=== PATIENT | female | born 1955 | race Caucasian/White ===

== ENCOUNTER 2018-07-14 15:09 | Day surgery (SDC) | payer OTHER ==
[2018-06-28 12:18] VITALS: BMI 25.2
[~2018-07-14 15:09] MED LIST: CEFAZOLIN 2 GM/D5W 2 GM/50 ML ML IVPB ONE; TRANEXAMIC ACID 1000 MG/10 ML VIAL IVPUSH ONE; VANCOMYCIN 1,000 MG in DEXTROSE 5%-WATER - 250 ML IVPB ONE
[2018-07-14] MEDS ORDERED: DEXAMETHASONE SOD PHOSPHATE/PF 10 MG/ML SDV ONE (15:11)
[2018-07-14] MEDS ORDERED: BUPIVACAINE HCL/PF (5 MG/ML) 30 ML VIAL IJ ONE (15:12)
[2018-07-14] MEDS ORDERED: MIDAZOLAM HCL 2 MG/2 ML SINGLE DOSE VIAL ONE (15:12)
[2018-07-14] MEDS ORDERED: PROPOFOL 20 ML ONE (16:21)
--- NOTE | 2018-07-14 17:11 | OP ---
Operative Note - Note: Operative Date: 07/14/18 Pre-Operative Diagnosis: Displaced, closed left distal radius and ulnar styloid fractures Operation: 1. Closed reduction left distal radius and ulnar styloid fractures. 2. Application left short arm cast Post-Operative Diagnosis: Same as Pre-op Surgeon: Koadk Burks Baseball Glove Shaper: Austin Burks Anesthesiologist/BINDER OPERATOR: Orlando Alfred Anesthesia: General (LMA) Estimated Blood Loss (mls): 0 Fluid Volume Replaced (mls): 250 (Crystalloid) Operative Report Dictated: Yes
[2018-07-14] MEDS ORDERED: [UNRECOGNIZED DRUG - OTHER] PO PRN (17:12)
[2018-07-14] MEDS ORDERED: ACETAMINOPHEN PO PRN (17:12)
[2018-07-14] MEDS ORDERED: DIPHENHYDRAMINE PO PRN (17:12)
--- NOTE | 2018-07-14 17:15 | PN ---
Progress Note (short form) - Note Progress Note: 62F s/p closed reduction left distal radius fracture & application left short arm cast #0. -Pain control: strictly no NSAID's. -DVT PPx: - Chemical: None. - Mechanical: OLYA's, SCD's. -Incentive spirometry. -PT/OT/Rehab, OOB. -NWB HOWIE. -f/u post-op trial of void - 8 hours max. -Cast care discussed with and understood by patient and family. -f/u [facility] [place] office tomorrow; call for appointment; . Kodak Burks MD (Orthopaedic Surgery).
[2018-07-14 18:16] VITALS: TEMP 97.9
[2018-07-14 19:05] VITALS: BP 127/65; PULSE 76
--- NOTE | 2018-07-14 23:22 | OP ---
DATE OF OPERATION: 07/14/2018 SURGEON: Kodak Burks M.D. ENTRY LEVEL MANAGEMENT: Austin Burks M.D. PREOPERATIVE DIAGNOSIS: Displaced Colles fracture left. POSTOPERATIVE DIAGNOSIS: Displaced Colles fracture left. OPERATION PERFORMED: 1. Manipulation under anesthesia. 2. Application of below-elbow cast. ANESTHESIA: Scalene block with general anesthesia. OPERATION IN DETAILS: The patient was correctly identified, brought in operating room. Left upper extremity was attended to as follows. Under fluoroscopy scanning, the fracture of the distal radius was inspected and was found to be a Colles fracture with an ulnar styloid fracture as well. The AP film was perfectly aligned. The lateral film revealed dorsal tilt of approximately 20 degrees. A manipulation under general anesthesia was performed. A cast applied, molding of the cast in accordance with the 6 points of pressure that is taking into the 3-point pressure in each plane, namely coronal and sagittal plane. A below-elbow cast is applied after a well padded cast applied. Fluoroscopy scan revealed the presence of a very acceptable reduction and the cast held the reduction well. No operative intervention. Plan for elevation and removal of cast in 6 weeks. MD ALLISON Padilla/[id number]
[2018-07-15] MEDS ORDERED: CHOLECALCIFEROL (VITAMIN D3) 1,000 UNIT TABLET (FP) PO SCH (10:00)
[2018-07-15] MEDS ORDERED: FLUoxetine HCL 20 MG CAPSULE (FP) PO SCH (10:00)
== END 2018-07-14 19:05 | disposition home or self-care (01) ==
LOC: FASU 15:09
PROVIDERS: ATTEND Orthopaedic Surgery Orthopaedic Surgery of the Spine
PROC: 0PSJXZZ Reposition Left Radius, External Approach (ICD-10-PCS; principal; 2018-07-14 16:43)
DX: S52.532A Colles' fracture of left radius, initial encounter for closed fracture (principal); X58.XXXA Exposure to other specified factors, initial encounter; Y93.9 Activity, unspecified; Y92.9 Unspecified place or not applicable
CPT/HCPCS: 73110-TC-LT-FY; 94760

== ENCOUNTER 2018-12-08 11:30 | Inpatient (IN) | payer OTHER ==
[2018-12-27 12:51] VITALS: BMI 22.8
[2019-01-12] MEDS ORDERED: MIDAZOLAM HCL 2 MG/2 ML SINGLE DOSE VIAL ONE ×3 (10:26→13:24)
[2019-01-12] MEDS ORDERED: TRANEXAMIC ACID 1000 MG/10 ML VIAL IVPUSH ONE (10:28)
[2019-01-12] MEDS ORDERED: VANCOMYCIN 1,000 MG in DEXTROSE 5%-WATER - 250 ML IVPB ONE (10:28)
[2019-01-12] MEDS ORDERED: CEFAZOLIN 1 GM/D5W 1 GRAM/50 ML BAG IVPB ONE (10:28)
[2019-01-12] MEDS ORDERED: BUPIVACAINE HCL/PF 0.5% (5MG/ML) 10 ML VIAL ONE ×2 (12:49→13:14)
[2019-01-12] MEDS ORDERED: TRANEXAMIC ACID 1000 MG/10 ML VIAL ONE (12:50)
[2019-01-12] MEDS ORDERED: ceFAZolin SODIUM 1 GM VIAL ONE (12:50)
[2019-01-12] MEDS ORDERED: VANCOMYCIN 1,000 MG VIAL (RESTRICTED TO ID ONLY) ONE (12:50)
[2019-01-12] MEDS ORDERED: ePHEDrine SULFATE 50 MG/1 ML AMPULE ONE (14:57)
[2019-01-12] MEDS ORDERED: MAG HYDROX/AL HYDROX/SIMETH 30 ML UNIT-DOSE CUP PO PRN (15:28)
[2019-01-12] MEDS ORDERED: MAGNESIUM HYDROX 2400MG/30ML ORAL SUSPENSION 30 ML CUP PO PRN (15:28)
[2019-01-12] MEDS ORDERED: LACTATED RINGERS SOLUTION 1,000 ML IV SCH ×2 (15:30→16:15)
[2019-01-12] MEDS ORDERED: traMADol HCL 50 MG TABLET PO PRN (16:01)
[2019-01-12] MEDS ORDERED: ONDANSETRON 4 MG/2 ML VIAL IVPUSH PRN (16:01)
[2019-01-12] MEDS ORDERED: ACETAMINOPHEN 1000 MG/100 ML VIAL (NON FORMULARY) IVPB ONE (16:01)
[2019-01-12] MEDS ORDERED: ACETAMINOPHEN INJECTION 100 ML IVPB ONE (16:17)
[2019-01-12] MEDS: oxyCODONE HCL 5 MG TABLET PO PRN ×2 (17:42→21:01)
[2019-01-12] MEDS: ONDANSETRON 4 MG/2 ML VIAL IVPUSH PRN (19:17)
[2019-01-12] MEDS: oxyCODONE HCL 10 MG SUSTAINED ACTING TABLET PO SCH (21:02)
[2019-01-12] MEDS: SENNOSIDES/DOCUSATE COMBO (SENNA PLUS) TABLET (UD) PO SCH (21:03)
[2019-01-12] MEDS: FERROUS SO4 325 MG TABLET (FP) PO SCH (21:03)
[2019-01-12] MEDS: ASPIRIN COATED 81 MG TABLET.EC PO SCH (21:03)
[2019-01-12] MEDS: ASCORBIC ACID 500 MG TABLET (FP) PO SCH (21:03)
[2019-01-12] MEDS: ACETAMINOPHEN 325 MG TABLET (FP) PO SCH (22:13)
[2019-01-12] MEDS: CEFAZOLIN 1 GM/D5W 1 GM/50 ML BAG IVPB SCH (23:07)
[2019-01-13] MEDS: oxyCODONE HCL 5 MG TABLET PO PRN ×6 (00:01→23:13)
[2019-01-13] MEDS ORDERED: VANCOMYCIN 1 GRAM (PRE-DOCKED) 1,000 MG/250 ML BAG IVPB ONE (01:00)
[2019-01-13] MEDS: ACETAMINOPHEN 325 MG TABLET (FP) PO SCH ×4 (03:16→21:49)
--- NOTE | 2019-01-13 04:17 | HP ---
CHIEF COMPLAINT: Right hip pain HISTORY OF PRESENT ILLNESS: 63 year-old female with a PMH significant for HLD, DJD, and anxiety, s/p right total hip arthroplasty on 01/12/[address] Burks. PAST MEDICAL HISTORY: Hyperlipidemia Degenerative joint disease Anxiety PAST SURGICAL HISTORY: Left wrist fracture closed reduction 06/2018 Social History: , 2 children Smoking: never Alcohol: no Drugs: no Family history: Mother a&w; father CVA, HTN, CABG Allergies No Known Allergies Allergy (Verified 12/27/18 12:41) HOME MEDICATIONS: Home Medications Medication Instructions Recorded Cholecalciferol (Vitamin D3) 4,000 unit PO DAILY 06/28/18 [Vitamin D3] Fluoxetine HCl [Prozac] 20 mg PO DAILY 06/28/18 Oxycodone HCl [Oxycodone HCl ER] 20 mg PO Q8H PRN 06/28/18 Acetaminophen 500 mg PO ASDIR PRN 07/14/18 REVIEW OF SYSTEMS CONSTITUTIONAL: Absent: fever, chills, diaphoresis, generalized weakness, malaise, loss of appetite, weight change HEENT: Absent: rhinorrhea, nasal congestion, throat pain, throat swelling, difficulty swallowing, mouth swelling, ear pain, eye pain, visual changes CARDIOVASCULAR: Absent: chest pain, syncope, palpitations, irregular heart rate, lightheadedness , peripheral edema RESPIRATORY: Absent: cough, shortness of breath, dyspnea with exertion, orthopnea, wheezing, stridor, hemoptysis GASTROINTESTINAL: Absent: abdominal pain, abdominal distension, nausea, vomiting, diarrhea, constipation, melena, hematochezia GENITOURINARY: Absent: dysuria, frequency, urgency, hesitancy, hematuria, flank pain, genital pain MUSCULOSKELETAL: +post-operative right hip pain Absent: myalgia, arthralgia, joint swelling, back pain, neck pain SKIN: Absent: rash, itching, pallor HEMATOLOGIC/IMMUNOLOGIC: Absent: easy bleeding, easy bruising, lymphadenopathy, frequent infections ENDOCRINE: Absent: unexplained weight gain, unexplained weight loss, heat intolerance, cold intolerance NEUROLOGIC: Absent: headache, focal weakness or paresthesias, dizziness, unsteady gait, seizure, mental status changes, bladder or bowel incontinence PSYCHIATRIC: Absent: anxiety, depression, suicidal or homicidal ideation, hallucinations. PHYSICAL EXAMINATION Vital Signs - 24 hr 01/12/19 01/12/19 01/12/19 11:15 16:02 16:07 Temperature 98.8 F 97.5 F L Pulse Rate 68 60 63 Respiratory 20 14 15 Rate Blood Pressure 110/69 96/68 100/64 O2 Sat by Pulse 100 99 Oximetry (%) 01/12/19 01/12/19 01/12/19 16:12 16:17 16:30 Temperature Pulse Rate 62 70 61 Respiratory 16 16 14 Rate Blood Pressure 97/59 L 99/62 99/62 O2 Sat by Pulse 99 98 99 Oximetry (%) 01/12/19 01/12/19 01/12/19 16:45 17:24 21:15 Temperature 97.3 F L 98.1 F Pulse Rate 59 L 61 75 Respiratory 18 18 17 Rate Blood Pressure 98/65 96/51 L 127/69 O2 Sat by Pulse 99 98 100 Oximetry (%) 01/13/19 01:00 Temperature 99.6 F Pulse Rate 74 Respiratory 18 Rate Blood Pressure 103/57 L O2 Sat by Pulse 96 Oximetry (%) GENERAL: Awake, alert, and fully oriented, in no acute distress. HEAD: Normal with no signs of trauma. EYES: Pupils equal, round and reactive to light, extraocular movements intact, sclera anicteric, conjunctiva clear. No lid lag. EARS, NOSE, THROAT: Ears normal, nares patent, oropharynx clear without exudates. Moist mucous membranes. NECK: Normal range of motion, supple without lymphadenopathy, JVD, or masses. LUNGS: Breath sounds equal, clear to auscultation bilaterally. No wheezes, and no crackles. No accessory muscle use. HEART: Regular rate and rhythm, normal S1 and S2 without murmur, rub or gallop. ABDOMEN: Soft, nontender, not distended, normoactive bowel sounds, no guarding, no rebound, no masses. No hepatomegaly or splenomegaly. UPPER EXTREMITIES: 2+ pulses, warm, well-perfused. No cyanosis. No clubbing. No peripheral edema. LOWER EXTREMITIES: 2+ pulses, warm, well-perfused. No calf tenderness. No peripheral edema; surgical dressing over right hip c/d/i; no surrounding erythema, warmth, fluctuance NEUROLOGICAL: Cranial nerves II-XII intact. Normal speech. Normal gait. PSYCHIATRIC: Cooperative. Good eye contact. Appropriate mood and affect. SKIN: Warm, dry, normal turgor, no rashes or lesions noted, normal capillary refill. Pre op Hgb 13.0 BUN 21 Cr 0.7 Intra op Cefazolin 2mg x 1, cefazolin 1mg x 1 EBL 150cc LR 1300 ccs ASSESSMENT/PLAN: 63 year-old female with a PMH significant for HLD, DJD, and anxiety, s/p right total hip arthroplasty on 01/12/[address] Burks. Right total hip arthroplasty --POD #1 --perioperative antibiotics per surgery --pain management per surgery --ASA 81mg BID --protonix --bowel regimen --incentive spirometry Hyperlipidemia --not on statin therapy Anxiety --continue Prozac FEN Fluids: PO intake adequate Electrolytes: replete as indicated Nutrition: regular diet DVT prophylaxis: OOB, ambulation, SCDs, TEDs, ASA 81mg BID Physical therapy Dispo: continues to require inpatient care. Full code. Visit type - Emergency Visit Emergency Visit: No - New Patient This patient is new to me today: Yes Date on this admission: 01/13/19 - Critical Care Critical Care patient: No
[2019-01-13] MEDS: ONDANSETRON 4 MG/2 ML VIAL IVPUSH PRN (05:56)
[2019-01-13] MEDS: CEFAZOLIN 1 GM/D5W 1 GM/50 ML BAG IVPB SCH (06:02)
[2019-01-13 07:15] LABS: HEMATOCRIT 31.9 % (32.4-45.2); HEMOGLOBIN 10.7 GM/dl (10.7-15.3); MCHC 33.6 g/dl (32.0-36.0); MEAN CELL VOLUME 89.3 fl (80-96); MEAN PLT VOLUME 8.8 fl (7.5-11.1); PLATELET COUNT 217 K/MM3 (134-434); RBC 3.57 M/mm3 (3.60-5.2); RDW 12.9 % (11.6-15.6); WHITE BLOOD COUNT 11.8 K/mm3 (4.0-10.8)
[2019-01-13 07:29] LABS: CALCIUM 9.1 mg/dl (8.5-10); CREATININE 0.6 mg/dl (0.55-1.3); MAGNESIUM 1.9 mg/dL (1.8-2.4)
--- NOTE | 2019-01-13 07:42 | PN ---
Progress Note (short form) - Note Progress Note: POD #1 s/p R TKA Alert. Sitting in chair at bedside. Hasn't ambulated yet. C/o a lot of incisonal tenderness. Low grade temp this morning 99.4F Voiding spontaneously. Denies n/v/c, CP, palpitations, SOB or YAN Last Vital Signs Temp Pulse Resp BP Pulse Ox 99.4 85 18 99/51 L 97 01/13/19 05:00 01/13/19 05:00 01/13/19 05:00 01/13/19 05:00 01/13/19 05:00 CBC, BMP 01/13/19 07:08 01/13/19 07:08 Gen: nad RLE:: dressing c/d/i. SCDs bilat. Neuro: GMNVI bilat Problem List - Problems (1) Status post total hip replacement, right Assessment/Plan: -Anasthesia to address pain control. -DVT PPx: -Chemical: ASA 81 mg po BID x 6 weeks -Mechanical: OLYA's, SCD's -Incentive Spirometer -PT/OT/Rehab, OOB. -WBAT RLE. -Posterior Rt hip precautions. -f/u drain output. -Case Management to eval need for REHAB placement -Tylenol for fever > 100.4F Code(s): Z96.641 - PRESENCE OF RIGHT ARTIFICIAL HIP JOINT (2) Osteoarthritis of right hip Code(s): M16.11 - UNILATERAL PRIMARY OSTEOARTHRITIS, RIGHT HIP
[2019-01-13] MEDS ORDERED: KETOROLAC TROMETHAMINE 15 MG/ML VIAL IVPUSH PRN (08:32)
[2019-01-13] MEDS: ASPIRIN COATED 81 MG TABLET.EC PO SCH ×2 (10:26→21:48)
[2019-01-13] MEDS: FERROUS SO4 325 MG TABLET (FP) PO SCH ×2 (10:27→21:48)
[2019-01-13] MEDS: oxyCODONE HCL 10 MG SUSTAINED ACTING TABLET PO SCH ×2 (10:27→21:48)
[2019-01-13] MEDS: SENNOSIDES/DOCUSATE COMBO (SENNA PLUS) TABLET (UD) PO SCH ×2 (10:28→21:48)
[2019-01-13] MEDS: PANTOPRAZOLE 40 MG TABLET (FP) PO SCH (10:29)
[2019-01-13] MEDS: MULTIVITAMINS (DAILY MVI) TABLET (FP) PO SCH (10:29)
[2019-01-13] MEDS: FLUoxetine HCL 20 MG CAPSULE (FP) PO SCH (10:29)
[2019-01-13] MEDS: ASCORBIC ACID 500 MG TABLET (FP) PO SCH ×2 (10:29→21:48)
--- NOTE | 2019-01-13 11:05 | PN ---
Progress Note (short form) - Note Progress Note: 63F s/p RIGHT total hip replacement POD #0. -Pain control: per anaesthesia team. -DVT PPx: -Chemical: ASA 81mg PO BID x 6 weeks. -Mechanical: OLYA's, SCD's. -Incentive spirometry q15 min. -PT/OT/Rehab, OOB. -WBAT RLE. -Post-op Ancef x 2 doses. -f/u post-op TOV: 8 hours max. -f/u AM labs. -Diet as tolerated. -Care per medical hospitalist team. -Discharge planning: f/u [facility] [place] Office 01/20/2019; call for appointment . -Will follow. Kodak Burks MD (Orthopaedic Surgery).
--- NOTE | 2019-01-13 11:08 | OP ---
Operative Note - Note: Operative Date: 01/12/19 Pre-Operative Diagnosis: Right hip DJD Operation: Right KOLE Implants: Cecil. Cup - Trident II-Tritanium, 56mm. Poly - 32mm, neutral. Stem - Accolade II, #5, 127 deg NSA. Head - 32mm diameter, standard length Biolox/Delta Ceramic. 2 x acetabular screws: 6.5 x 25 & 6.5 x 20mm Post-Operative Diagnosis: Same as Pre-op Surgeon: Kodak Burks Batch And Furnace Manager: Austin Burks Anesthesiologist/SEAM STAY STITCHER: Murray Magallon Anesthesia: Spinal Specimens Removed: Right femoral head Estimated Blood Loss (mls): 250 Fluid Volume Replaced (mls): 1,000 (Crystalloid) Operative Report Dictated: Yes
--- NOTE | 2019-01-13 11:14 | PN ---
Progress Note (short form) - Note Progress Note: POD 1 s/p R hip arthroplasty under spinal/R L2 paravertebral block. Patient c/ o pain overnight, now controlled with scheduled oxycontin, prn oxycodone and IV toradol. Reassurance given and patient encouraged to utilize both po and IV pain medication.
[2019-01-14] MEDS: ACETAMINOPHEN 325 MG TABLET (FP) PO SCH ×3 (04:15→15:56)
[2019-01-14] MEDS: oxyCODONE HCL 5 MG TABLET PO PRN ×4 (05:53→17:32)
[2019-01-14 07:49] LABS: HEMATOCRIT 29.3 % (32.4-45.2); HEMOGLOBIN 9.6 GM/dl (10.7-15.3); MCH 29.4 pg (25.7-33.7); MCHC 32.7 g/dl (32.0-36.0); MEAN PLT VOLUME 9.2 fl (7.5-11.1); PLATELET COUNT 193 K/MM3 (134-434); RBC 3.25 M/mm3 (3.60-5.2); RDW 13.1 % (11.6-15.6); WHITE BLOOD COUNT 10.6 K/mm3 (4.0-10.8)
--- NOTE | 2019-01-14 09:41 | PN ---
Progress Note (short form) - Note Progress Note: POD 2, s/p R THR Pt seen and examined. Reports she is doing "okay". Continues to have some pain with ambulation/excessive movement of the leg. Was oob with PT yesterday without issue. Tolerating Po, voiding without issue. Denies cp/sob, n/v/d. Vital Signs Temp 98.6 F 01/14/19 05:00 Pulse 81 01/14/19 05:00 Resp 18 01/14/19 05:00 BP 116/61 01/14/19 05:00 Pulse Ox 95 01/14/19 08:32 Intake & Output 01/13/19 01/13/19 01/14/19 11:59 23:59 11:59 Intake Total 550 Balance 550 Intake: Oral 550 Other: Voiding Method Toilet Toilet Toilet # Unmeasured Voids Void 2 2 CBC, BMP 01/14/19 07:35 01/13/19 07:08 Gen: awake, alert, nad. Sitting in chair Resp: unlabored on RA LE: RLE with dressing c/d/i, ice packs in place. B/L LE's 5/5 dorsi/plantarflexion, 5/5 ehl/fhl, silt b/l les, mild edema noted, compartments soft. SCDS in place and on A/P: 63 y/o F w/ PMHx HLD, anxiety, DJD admitted for elective joint replacement , now s/p right total hip arthroplasty on 01/12/19. afebrile, vss Labs stable -D/C instructions including pain regimen plan discussed at length with pt. Pt verbalized understanding -Importance of adherence to ASA 81mg bid for DVT prophylaxis discussed at length -Requesting d/c today -All scripts sent d/w attendings dr Bills
[2019-01-14] MEDS: ASCORBIC ACID 500 MG TABLET (FP) PO SCH (09:54)
[2019-01-14] MEDS: MULTIVITAMINS (DAILY MVI) TABLET (FP) PO SCH (09:55)
[2019-01-14] MEDS: SENNOSIDES/DOCUSATE COMBO (SENNA PLUS) TABLET (UD) PO SCH (09:55)
[2019-01-14] MEDS: PANTOPRAZOLE 40 MG TABLET (FP) PO SCH (09:55)
[2019-01-14] MEDS: FERROUS SO4 325 MG TABLET (FP) PO SCH (09:56)
[2019-01-14] MEDS: FLUoxetine HCL 20 MG CAPSULE (FP) PO SCH (09:56)
[2019-01-14] MEDS: ASPIRIN COATED 81 MG TABLET.EC PO SCH (09:56)
[2019-01-14] MEDS: oxyCODONE HCL 10 MG SUSTAINED ACTING TABLET PO SCH (09:57)
--- NOTE | 2019-01-14 11:33 | DS ---
"Physical Exam: SUBJECTIVE: Patient seen and examined OBJECTIVE: Vital Signs Period Temp Pulse Resp BP Sys/Rosenthal Pulse Ox Last 24 Hr 98.4 F-99.9 F 66-88 18-18 93-118/53-62 92-98 PHYSICAL EXAM GENERAL: The patient is awake, alert, and fully oriented, in no acute distress. HEAD: Normal with no signs of trauma. EYES: PERRL, extraocular movements intact, sclera anicteric, conjunctiva clear. ENT: Ears normal, nares patent, oropharynx clear without exudates, moist mucous membranes. NECK: Trachea midline, full range of motion, supple. LUNGS: Breath sounds equal, clear to auscultation bilaterally, no wheezes, no crackles, no accessory muscle use. HEART: Regular rate and rhythm, S1, S2 without murmur, rub or gallop. ABDOMEN: Soft, nontender, nondistended, normoactive bowel sounds, no guarding, no rebound, no hepatosplenomegaly, no masses. LOWER EXTREMITIES: 2+ pulses, warm, well-perfused. No calf tenderness. No peripheral edema; surgical dressing over right hip c/d/i; no surrounding erythema, warmth, fluctuance NEUROLOGICAL: Cranial nerves II through XII grossly intact. Normal speech. LABS Laboratory Results - last 24 hr 01/14/19 07:35 WBC 10.6 RBC 3.25 L Hgb 9.6 L Hct 29.3 L MCV 90.0 MCH 29.4 MCHC 32.7 RDW 13.1 Plt Count 193 MPV 9.2 HOSPITAL COURSE: Date of Admission:01/12/19 Date of Discharge: 01/14/19 63 year-old female with a PMH significant for HLD, DJD, and anxiety, s/p right total hip arthroplasty on 01/12/[address] Burks. Right total hip arthroplasty --perioperative antibiotics complete --ASA 81mg BID x 6 weeks Hyperlipidemia --not on statin therapy Anxiety --continued Prozac Minutes to complete discharge: 35 Discharge Summary Problems reviewed: Yes Reason For Visit: PAIN IN RIGHT HIP Current Active Problems Osteoarthritis of right hip (Acute) Status post total hip replacement, right (Acute) Condition: Improved - Instructions Diet, Activity, Other Instructions: Dr. Burks Discharge Instructions for Hip Replacement Post Operative Instructions Physical activity Physical Therapist will come to your home for the first 5 days. You will be set up with outpatient PT at your first post-operative visit. Use assistive devices for ambulation at all times. Weight bearing as tolerated on your surgical side. Wound care Leave your surgical dressing in place. Do not change the dressing until seen by your surgeon in the office. No baths or showers. Do not submerge your incision. Do not apply any ointments or lotions to your incision. Please call the office if your dressing is soiled/dirty or is falling off. Apply Graduated Compression Stockings (TEDS) to both lower extremities-remove daily for hygiene ONLY. Diet There are no dietary restrictions. Eat healthy, high-fiber foods. Drink 6 to 8 glasses of liquid each day. This will assist in keeping your bowels are regular. We recommend taking an over the counter stool softener daily if you are utilizing the narcotic pain medications as this can lead to constipation. If you become constipated you may use Miralax which can be purchased over the counter (please follow the residential designer's dosage instructions). Pain management You may take (Tylenol) Acetaminophen 1000mg every 6 hours. Do not exceed more than 4g (4000mg) in 24 hours as this can lead to liver damage/failure. If you are taking 4g of Tylenol per day (the above regimen), do not continue this regimen for more then 10 days. You may take Ibuprofen as needed, please follow the residential designer's dosage instructions. Do not exceed the dosage recommended by the residential designer as this can lead to kidney damage/failure. We recommend keeping track of the dosage and time you take each medication to ensure you do not exceed the residential designer's recommended daily dosage. Take Ibuprofen with food, Acetaminophen may be taken on an empty stomach. Any pain prescription medication ordered should be taken as prescribed for moderate to severe pain. If the pain regimen described above is not controlling your pain, please contact the office. Do not drive, drink alcohol or operate heavy machinery while taking narcotic pain medications. Do not mix narcotic pain medications with sedatives/benzodiazepines or sleeping aids unless discussed with your doctor. Posterior Hip Precautions: Do not cross the leg you had surgery on over your other leg. (Do not cross your legs.)Use an elevated toilet seat. Do not sit on low chairs or beds. Use purple pillow (abductor) when lying in bed. Take Aspirin 81 mg two times a day for a total of 6 weeks to prevent blood clots. Call Dr. Burks for any of the following: Severe pain not relieved by medication Fever of 101 or higher Excessive bleeding or drainage on dressing Inability to urinate If you experience chest pain or shortness of breath, please seek emergency care immediately. Please call the office at to confirm your post-op appointment for the week following surgery. This report was requested by: Violet Rios | Reference #: [id number] Referrals: Austin Burks MD [Staff Physician] - Disposition: HOME - Home Medications Comprehensive Discharge Medication List: Ambulatory Orders Cholecalciferol (Vitamin D3) [Vitamin D3] 4,000 unit PO DAILY 06/28/18 Fluoxetine HCl [Prozac] 20 mg PO DAILY 06/28/18 Acetaminophen 1,000 mg PO Q6H 7 Days #28 tablet 01/14/19 Aspirin Coated [Ecotrin -] 81 mg PO BID 42 Days #84 tablet.ec 01/14/19 Docusate Sodium [Colace] 100 mg PO BID 10 Days #20 capsule 01/14/19 oxyCODONE HCL [Roxicodone -] 5 mg PO Q3H PRN 7 Days #48 tablet MDD 8 01/14/19 This patient is new to me today: No Emergency Visit: No Critical Care patient: No - Discharge Referral Referred to [facility] No"
[2019-01-14 14:14] VITALS: BP 99/57; PULSE 63; TEMP 98.2
--- NOTE | 2019-01-17 15:54 | OP ---
Date of Operation: 01/12/2019 Surgeon: Kodak Burks M.D. Overhead Garage Door Hanger: Austin Burks M.D. Pre-Operative Diagnosis: Primary osteoarthritis right hip. Post-Operative Diagnosis: Primary osteoarthritis right hip. Surgical Procedure: Right total hip replacement via Direct Suprior approach. Anaesthesia: Spinal, block. Position: Left lateral decubitus. Incision: Direct superior. Estimated Blood Loss: 250cc. Intravenous Fluid: 1L crystalloid. Specimens: Right femoral head. Drains: None. Complications: None. Urine output: None. Bacteriology: None. Transfusions: None. Closure: #1 Vicryl, 3-0 Biosyn. Indications: The patient was indicated for a right total hip replacement in order to facilitate improved motion and mobilization, and to prevent the complications associated with a sedentary lifestyle. The patient was identified in the holding area by her armband. A long discussion was held with the patient (in the presence of the patients family) regarding the risks, benefits and alternatives of the above named procedure. Risks include but are not limited to: pain, bleeding, infection, damage to surrounding structures (including nerves, blood vessels, skin, ligaments, tendons and bone), wound complications, failure of hardware/implants/reduction, need for further surgery, blood clots, myocardial infarction, pulmonary embolism , cerebrovascular insult, anaesthesia complications, compartment syndrome, limb loss, limp, loss of function, and . Benefits as mentioned above. Alternatives include no surgery. All questions were answered. The patient understood and agreed to the procedure. Informed consent was obtained, witnessed and verified. The patients correct operative limb - that is the right lower extremity - was marked, and the patient was taken to the operating room after being seen by the anesthesia and nursing staff. Procedure: The patient was brought into the operating room, placed on the OR table and secured with a safety strap. Consent and the operative site were again verified with the patient and nursing and anaesthesia staff. Anaesthesia, IV antibiotics, and TXA were then administered without complication. A time out was done, led by me the attending surgeon. The patient was gently turned into the left lateral decubitus position. An axillary roll was placed. A Stulberg hip positioner with well-padded bolsters was used to secure the patient in the lateral decubitus position. The down arm was placed on a well-padded arm board. The up arm was brought across the patients body and placed on 2 pillows. Foam egg crates were placed under the down knee and ankle, and bony prominences were well padded. The operative site was then prepped and draped in the standard sterile fashion. Time out was again done and the case began. Operation: A standard Direct Superior surgical approach was utilized to access the hip joint. With a #10 blade, a skin incision was taken from the posterior-superior corner of the greater trochanter in a posterior-superior direction. This was approximately 10cm in length. Electrocautery was utilized to carry the deep dissection down to the level of the gluteus kennedy fascia. Hemostasis was assured using electrocautery (bipolar and unipolar). The gluteus kennedy fascia was incised, and the fibers of gluteus kennedy were in line with the trajectory of the incision. This confirmed the accuracy of our planned incision based on palpated landmarks and surface anatomy. A Shah elevator was used to split the distal fibers of gluteus kennedy, in line with the fibers, just proximal to their insertion into the iliotibial band. Great care was taken not to incise the iliotibial band. Gluteus kennedy fibers were split proximally using the Shah elevator until reaching the apex of the wound. Again, hemostasis was assured. The stacey-capsular fat pad was exposed utilizing curved handle bar retractors. The stacey-capsular fat pad was excised off the inferior border of the gluteus medius muscle belly, exposing the insertion of the hip short external rotator muscle group. The piriformis tendon was identified and freed from adhesions to the capsule using a 90-degree clamp. This tendon was then released from its insertion using electrocautery. The tendon was tagged with a # 2 Fiberwire suture and tied to the inferior aspect of the proximal wound apex. The tendon, thus, served as a sling to retract and protect the sciatic nerve. With the piriformis tendon reflected away from its insertion, the hip joint capsule was visualized. Electrocautery was used to perform a capsulotomy and synovial joint fluid was aspirated. Next, the superior leaflet of the capsule was elevated using a Shah elevator to create separation from the underlying labrum and also to create a plane for later placement of a supra-acetabular retractor. The labrum was excised using electrocautery. The hip was then gently dislocated. A standard femoral neck cut was made using an oscillating saw. A 3/4 " osteotome was delivered into the femoral head using mallet strikes. The femoral head was then removed. Anterior, inferior, and supra-acetabular retractors were placed to expose the acetabulum. The pulvinar was excised using electrocautery. Hemispherical basket reamers were used to prepare the acetabular bone bed. Healthy blushes of bleeding were observed from the reamed cancellous bone bed. Next, a size 56mm Gillett Trident cup was impacted into position, achieving excellent press-fit. 2 Acetabular screws were drilled, sized , and placed for supplemental fixation due to the soft nature of the bone bed. A size 32mm neutral polyethylene liner was then impacted into the cup. Excellent placement of the polyethylene liner, and excellent press fit of the cup were confirmed. Next, attention was turned to femoral preparation. The anterior and supra-acetabular retractors were removed. The cut femoral neck was then exposed using the inferior acetabular retractor around the calcar, and a straight 90-degree retractor to retract gluteus medius. The box-cutter osteotome was used with a mallet to removed bone from the lateral femoral neck. An opening reamer was delivered by hand to find the femoral canal. A lateralizing reamer was used with power to lateralize the proximal entry into the canal, so as to avoid placing the stem into varus. The femoral bone bed was then prepared using broaches with gentle mallet strikes. The tibia was used as a goniometer with which to dial in approximately 5 degrees of stem anteversion. Trial components were assembled and the hip was reduced. The hip was taken through a full range of motion and proved stable throughout this range of motion , including at the extremes of positions of compromised. All trial femoral components were removed. Another 1g of IV Ancef was administered so that the bone bed would be rich with antibiotic at the time of seating of the femoral implant. A Gillett Accolade II (127-degree NSA, high offset) #5 stem was then implanted using gentle mallet strikes, diligently matching the prepared degree of stem anteversion. With the stem fully seated, a 32mm diameter, standard length Biolox/delta ceramic femoral head was then selected and implanted. The hip was once again reduced, and taken through a full range of motion. Stability was once again assured. Leg length was satisfactory. The wounds were copiously irrigated, as they had been regularly throughout the case so as to keep the retracted tissues wet, and in order to flush out wound debris. The capsule was primarily repaired using #1 Vicryl sutures in simple interrupted fashion. The tagged piriformis tendon was released and tied to the posterior-lateral corner of the greater trochanter. The remaining wounds were again irrigated. Hemostasis was assured and the wound was closed primarily using #1 Vicryl sutures. A 3-0 Biosyn suture was used to perform a subcuticular wound closure. A sterile, compressive dressing was applied. The sponge and needle counts were correct at the end of the case and the attending was present and scrubbed throughout the case. The patient was then transferred into a supine position and onto the hospital bed. A standard AP-pelvis x-ray was taken, demonstrating good overall alignment with a well reduced, congruent hip. There was no evidence of subsidence, loosening, or stacey-prosthetic fracture. The patient was then was then transferred to the recovery room without incident/complications and in stable condition, having tolerated the procedure well. MD ALLISON Padilla/[id number] MTDD
--- NOTE | 2019-01-17 16:15 | PATH ---
Surgical Pathology Report Patient Name: CARROLL GALLEGOS Med. Rec. #: [id number] /Age/Gender: 1955 (Age: 63) / F Account: [id number] [facility] Taken: 01/12/2019 Received: 01/12/2019 Reported: 01/17/2019 Physicians: Kodak Burks M.D. Specimen(s) Received RIGHT FEMORAL HEAD Clinical History Right hip osteoarthritis Final Diagnosis FEMORAL HEAD, RIGHT, TOTAL HIP REPLACEMENT: DEGENERATIVE JOINT DISEASE. Electronically Signed Kate Fuller M.D. Gross Description Received in formalin, labeled "right femoral head," is a 4.6 x 4.6 x 3.7 cm. femoral head with a 0.6 cm in length portion of femoral neck attached. The margin of resection is smooth. There is a 1.1 cm in greatest dimension area of eburnation present. The remaining articular surface is duenas-yellow and focally granular. The underlying trabecular bone is yellow and hard. A regional sales representative section is submitted in one cassette, following decalcification. 01/13/2019 [facility]01/13/2019
== END 2019-01-14 17:40 | disposition home or self-care (01) | DRG 470 ==
LOC: FM/S 01-12 10:12
PROVIDERS: ADMIT Orthopaedic Surgery Orthopaedic Surgery of the Spine; ATTEND Nurse Practitioner Acute Care
PROC: 0SR903Z Replacement of Right Hip Joint with Ceramic Synthetic Substitute, Open Approach (ICD-10-PCS; principal; 2019-01-12 14:03)
DX: M16.11 Unilateral primary osteoarthritis, right hip (principal); E78.5 Hyperlipidemia, unspecified; F41.9 Anxiety disorder, unspecified
CPT/HCPCS: 36415; 73502-TC-RT-FY; 80048; 83735; 85027; 88305-TC; 88311-TC; 94760; 97116-GP; 97163-GP; J0131

== ENCOUNTER 2020-08-29 04:28 | Inpatient (IN) | payer BC, OTHER ==
[2020-08-24 09:18] VITALS: BMI 23.9
[2020-08-29] MEDS ORDERED: EPINEPHrine/PF 1 MG/1 ML (1:1,000) AMPULE ONE (11:17)
[2020-08-29] MEDS ORDERED: ROPIVACAINE HCL 0.5% 30ML VIAL ONE (11:17)
[2020-08-29] MEDS ORDERED: MIDAZOLAM HCL 2 MG/2 ML SINGLE DOSE VIAL ONE ×3 (11:19→12:48)
[2020-08-29] MEDS ORDERED: VANCOMYCIN 1,000 MG VIAL (RESTRICTED TO ID ONLY) ONE ×2 (11:37)
[2020-08-29] MEDS ORDERED: BUPIVACAINE HCL 50 ML ONE (12:07)
[2020-08-29] MEDS ORDERED: PROPOFOL 20 ML ONE ×7 (12:19→13:38)
[2020-08-29] MEDS ORDERED: EPHEDRINE SULFATE/0.9% NACL/PF 50 MG/10 ML SYRINGE NR ONE (13:08)
[2020-08-29] MEDS ORDERED: MAGNESIUM HYDROX 2400MG/30ML ORAL SUSPENSION 30 ML CUP PO PRN (14:52)
[2020-08-29] MEDS ORDERED: ONDANSETRON 4 MG/2 ML VIAL IVPUSH PRN (14:52)
[2020-08-29] MEDS ORDERED: MAG HYDROX/AL HYDROX/SIMETH 30 ML UNIT-DOSE CUP PO PRN (14:52)
[2020-08-29] MEDS ORDERED: LACTATED RINGERS SOLUTION 1,000 ML IV SCH (15:00)
[2020-08-29] MEDS ORDERED: ACETAMINOPHEN 1000 MG/100 ML VIAL (NON FORMULARY) IVPB ONE (15:23)
[2020-08-29] MEDS ORDERED: oxyCODONE HCL 5 MG TABLET PO PRN (15:23)
[2020-08-29] MEDS ORDERED: ACETAMINOPHEN INJECTION 100 ML IVPB ONE (16:02)
[2020-08-29] MEDS: KETOROLAC TROMETHAMINE 30 MG/1 ML VIAL IVPUSH PRN (16:20)
[2020-08-29] MEDS ORDERED: KETOROLAC TROMETHAMINE 30 MG/1 ML VIAL ONE (16:20)
[2020-08-29] MEDS: CEFAZOLIN 2 GM/D5W 2 GM/50 ML ML IVPB SCH (18:09)
[2020-08-29] MEDS: oxyCODONE HCL 5 MG TABLET PO PRN (20:33)
[2020-08-29] MEDS: ACETAMINOPHEN 325 MG TABLET (FP) PO SCH (21:52)
[2020-08-29] MEDS: SENNOSIDES/DOCUSATE COMBO (SENNA PLUS) TABLET (UD) PO SCH (21:53)
[2020-08-29] MEDS: ASPIRIN 81 MG CHEWABLE TABLETS PO SCH (21:53)
[2020-08-29] MEDS: CELECOXIB 200 MG CAPSULE PO SCH (21:54)
[2020-08-30] MEDS: CEFAZOLIN 2 GM/D5W 2 GM/50 ML ML IVPB SCH ×2 (01:12→06:16)
[2020-08-30] MEDS: ACETAMINOPHEN 325 MG TABLET (FP) PO SCH ×4 (04:29→21:10)
[2020-08-30] MEDS: oxyCODONE HCL 5 MG TABLET PO PRN ×2 (06:23→21:02)
[2020-08-30 08:24] LABS: BASO % 0.6 % (0-2.0); EOS % 3.2 % (0-4.5); HEMATOCRIT 33.2 % (32.4-45.2); HEMOGLOBIN 11.2 GM/dL (10.7-15.3); LYMPH % 17.8 % (8-40); MCH 30.9 pg (25.7-33.7); MCHC 33.7 g/dl (32.0-36.0); MEAN CELL VOLUME 91.7 fl (80-96); MEAN PLT VOLUME 8.5 fl (7.5-11.1); MONO % 10.6 % (3.8-10.2); NEUT % 67.8 % (42.8-82.8); PLATELET COUNT 268 K/MM3 (134-434); RBC 3.62 M/mm3 (3.60-5.2); RDW 14.7 % (11.6-15.6)
[2020-08-30 08:53] LABS: BLOOD UREA NITROGEN 12.9 mg/dL (7-18); CALCIUM 8.9 mg/dL (8.5-10.1)
[2020-08-30 08:54] LABS: MAGNESIUM 2.2 mg/dL (1.8-2.4)
[2020-08-30 08:57] LABS: BILIRUBIN,TOTAL 0.3 mg/dL (0.2-1); CREATININE 0.6 mg/dL (0.55-1.3); PHOSPHOROUS 3.3 mg/dL (2.5-4.9)
[2020-08-30] MEDS ORDERED: PT OWN MED DRAWER 7, Y5N ONE ×2 (09:53→20:53)
[2020-08-30] MEDS: CELECOXIB 200 MG CAPSULE PO SCH ×2 (10:05→21:03)
[2020-08-30] MEDS: SENNOSIDES/DOCUSATE COMBO (SENNA PLUS) TABLET (UD) PO SCH ×2 (10:06→21:02)
[2020-08-30] MEDS: ASPIRIN 81 MG CHEWABLE TABLETS PO SCH ×2 (10:06→21:03)
[2020-08-30] MEDS: CHOLECALCIFEROL (VIT D3) 1,000 UNIT (25 MCG) TABLET PO SCH (10:07)
[2020-08-30] MEDS: PANTOPRAZOLE 40 MG TABLET PO SCH (10:07)
[2020-08-30] MEDS: FLUoxetine HCL 20 MG CAPSULE PO SCH (10:07)
[2020-08-30] MEDS: KETOROLAC TROMETHAMINE 30 MG/1 ML VIAL IVPUSH PRN (14:47)
[2020-08-31] MEDS: ACETAMINOPHEN 325 MG TABLET (FP) PO SCH ×2 (04:00→10:05)
[2020-08-31 08:22] LABS: HEMATOCRIT 33.7 % (32.4-45.2); HEMOGLOBIN 11.3 GM/dL (10.7-15.3); MCH 30.9 pg (25.7-33.7); MCHC 33.5 g/dl (32.0-36.0); MEAN CELL VOLUME 92.1 fl (80-96); MEAN PLT VOLUME 8.4 fl (7.5-11.1); PLATELET COUNT 277 K/MM3 (134-434); RBC 3.65 M/mm3 (3.60-5.2); RDW 14.9 % (11.6-15.6); WHITE BLOOD COUNT 8.8 K/mm3 (4.0-10.0)
[2020-08-31 08:36] LABS: BLOOD UREA NITROGEN 13.6 mg/dL (7-18); CALCIUM 8.8 mg/dL (8.5-10.1)
[2020-08-31 08:40] LABS: CREATININE 0.5 mg/dL (0.55-1.3)
[2020-08-31 08:45] VITALS: TEMP 98.2
[2020-08-31] MEDS ORDERED: PT OWN MED DRAWER 7, Y5N ONE (09:35)
[2020-08-31] MEDS: FLUoxetine HCL 20 MG CAPSULE PO SCH (10:04)
[2020-08-31] MEDS: CHOLECALCIFEROL (VIT D3) 1,000 UNIT (25 MCG) TABLET PO SCH (10:04)
[2020-08-31] MEDS: SENNOSIDES/DOCUSATE COMBO (SENNA PLUS) TABLET (UD) PO SCH (10:04)
[2020-08-31] MEDS: ASPIRIN 81 MG CHEWABLE TABLETS PO SCH (10:04)
[2020-08-31] MEDS: PANTOPRAZOLE 40 MG TABLET PO SCH (10:04)
[2020-08-31] MEDS: CELECOXIB 200 MG CAPSULE PO SCH (10:05)
[2020-08-31] MEDS: oxyCODONE HCL 5 MG TABLET PO PRN (10:10)
[2020-08-31 14:27] VITALS: BP 99/57; PULSE 72
== END 2020-08-31 15:07 | disposition home or self-care (01) | DRG 465 ==
LOC: JASU-SURG 04:28 → JASUSAT 04:28 → SUATTDRO 04:28 → J6S 18:05 → JASUSAT 08-30 12:32
PROVIDERS: ADMIT Internal Medicine; ATTEND Internal Medicine
PROC: 0SJB0ZZ Inspection of Left Hip Joint, Open Approach (ICD-10-PCS; 2020-08-29)
PROC: 0MBM0ZZ Excision of Left Hip Bursa and Ligament, Open Approach (ICD-10-PCS; 2020-08-29)
PROC: BW1CZZZ Fluoroscopy of Lower Extremity (ICD-10-PCS; 2020-08-29)
PROC: 0SPB0JZ Removal of Synthetic Substitute from Left Hip Joint, Open Approach (ICD-10-PCS; principal; 2020-08-29 10:30)
DX: T84.011A Broken internal left hip prosthesis, initial encounter (principal); F41.8 Other specified anxiety disorders; M71.152 Other infective bursitis, left hip; Y83.9 Surgical procedure, unspecified as the cause of abnormal reaction of the patient, or of later complication, without mention of misadventure at the time of the procedure
CPT/HCPCS: 36415; 73502-TC-LT-FY; 76000-TC-FY; 80048; 80053; 83735; 84100; 85025; 85027; 87070; 87205; 88300-TC; 94010; 94760; 97116-GP; 97162-GP; C9803; J0131; U0003; U0005